=== PATIENT | female | born 2000 | race Caucasian/White ===

== ENCOUNTER 2021-12-24 21:41 | Emergency (ER) | payer SELFPAY ==
[2021-12-24 21:50] VITALS: BP 131/78; PULSE 74; RESP 19; TEMP 97.9; BMI 29.2
[2021-12-24 22:48] LABS: BASO % 0.6 % (0-2.0); EOS % 0.8 % (0-4.5); HEMATOCRIT 38.1 % (32.4-45.2); HEMOGLOBIN 13.2 GM/dL (10.7-15.3); LYMPH % 32.2 % (8-40); MCH 28.4 pg (25.7-33.7); MCHC 34.8 g/dl (32.0-36.0); MEAN CELL VOLUME 81.5 fl (80-96); MONO % 9.6 % (3.8-10.2); NEUT % 56.8 % (42.8-82.8); PLATELET COUNT 279 10^3/uL (134-434); RBC 4.67 M/mm3 (3.60-5.2); RDW 14.7 % (11.6-15.6); WHITE BLOOD COUNT 7.6 K/mm3 (4.0-10.0)
[2021-12-24 22:52] LABS: EPI CELLS >36 /uL (0-25.1); HYALINE CASTS 1 /uL (0-3.1); PH,URINE 6.5 (5.0-8.0); URINE APPEARANCE CLEAR; URINE BACTERIA >9,000 /uL (0-1359); URINE BILIRUBIN NEGATIVE (NEGATIVE); URINE COLOR ORANGE; URINE GLUCOSE (UA) NEGATIVE (NEGATIVE); URINE KETONE NEGATIVE (NEGATIVE); URINE LEUK ESTERASE TRACE (NEGATIVE); URINE NITRITE POSITIVE (NEGATIVE); URINE PROTEIN TRACE (NEGATIVE); URINE RBC 10 /uL (0-23.9); URINE WBC 74 /uL (0-25.8)
[2021-12-24 22:53] LABS: HCG,QUALITATIVE URINE Negative
[2021-12-24 23:11] LABS: CALCIUM 9.1 mg/dL (8.5-10.1)
[2021-12-24 23:13] LABS: BLOOD UREA NITROGEN 13.9 mg/dL (7-18)
[2021-12-24 23:15] LABS: CREATININE 0.9 mg/dL (0.55-1.3)
[2021-12-24 23:16] LABS: BILIRUBIN,TOTAL 0.4 mg/dL (0.2-1); TOT PROT 7.4 g/dl (6.4-8.2)
[2021-12-24] MEDS ORDERED: KETOROLAC TROMETHAMINE 15 MG/ML VIAL IVPUSH ONE (23:48)
[2021-12-25] MEDS ORDERED: KETOROLAC TROMETHAMINE 15 MG/ML VIAL ONE (00:21)
== END 2021-12-25 02:04 | disposition home or self-care (01) ==
LOC: JER 21:41 → EDSEX 21:41 → JER 12-25 02:04
PROC: 3E033GC Introduction of Other Therapeutic Substance into Peripheral Vein, Percutaneous Approach (ICD-10-PCS; principal; 2021-12-24)
DX: N39.0 Urinary tract infection, site not specified (principal); N93.9 Abnormal uterine and vaginal bleeding, unspecified; R10.32 Left lower quadrant pain
CPT/HCPCS: 36415; 76830-TC; 80053; 81003; 84703; 85025; 86850; 86900; 86901; 87491; 87591; 87661; 99284-25

== ENCOUNTER 2023-02-15 14:13 | Emergency (ER) | payer SELFPAY ==
[2023-02-15 14:30] VITALS: BP 102/60; PULSE 84; RESP 18; TEMP 98; BMI 29.9
[2023-02-15] MEDS ORDERED: ACETAMINOPHEN 500 MG TABLET (FP) PO ONE (15:01)
[2023-02-15] MEDS ORDERED: ACETAMINOPHEN 325 MG TABLET (FP) ONE (15:23)
[2023-02-15 15:35] LABS: BASO % 0.5 % (0-2.0); EOS % 0.9 % (0-4.5); HCG,QUALITATIVE URINE Positive; HEMATOCRIT 37.2 % (32.4-45.2); HEMOGLOBIN 12.6 GM/dL (10.7-15.3); LYMPH % 26.4 % (8-40); MCH 25.8 pg (25.7-33.7); MCHC 33.8 g/dl (32.0-36.0); MEAN CELL VOLUME 76.3 fl (80-96); MEAN PLT VOLUME 8.5 fl (7.5-11.1); MONO % 8.1 % (3.8-10.2); NEUT % 64.1 % (42.8-82.8); PLATELET COUNT 328 10^3/uL (134-434); RBC 4.87 M/mm3 (3.60-5.2); RDW 16.6 % (11.6-15.6); URINE APPEARANCE CLEAR; URINE BILIRUBIN NEGATIVE (NEGATIVE); URINE COLOR YELLOW; URINE GLUCOSE (UA) NEGATIVE (NEGATIVE); URINE KETONE NEGATIVE (NEGATIVE); URINE LEUK ESTERASE NEGATIVE (NEGATIVE); URINE NITRITE NEGATIVE (NEGATIVE); URINE PROTEIN NEGATIVE (NEGATIVE); URINE UROBILINOGEN 0.2 mg/dL (0.2-1.0); WHITE BLOOD COUNT 10.2 K/mm3 (4.0-10.0)
[2023-02-15 16:01] LABS: POTASSIUM 4.7 mmol/L (3.5-5.1)
[2023-02-15 16:03] LABS: CALCIUM 8.8 mg/dL (8.5-10.1)
[2023-02-15 16:04] LABS: ALBUMIN 3.8 g/dl (3.4-5.0)
[2023-02-15 16:07] LABS: CREATININE 0.7 mg/dL (0.55-1.3)
[2023-02-15 16:09] LABS: BILIRUBIN,TOTAL 0.3 mg/dL (0.2-1); TOT PROT 6.9 g/dl (6.4-8.2)
== END 2023-02-15 17:21 | disposition left against medical advice (07) ==
LOC: JER 14:13
DX: O26.891 Other specified pregnancy related conditions, first trimester (principal); R10.32 Left lower quadrant pain; O21.9 Vomiting of pregnancy, unspecified; Z3A.10 10 weeks gestation of pregnancy
CPT/HCPCS: 36415; 80053; 81003; 84702; 84703; 85025; 87086; 99283-25

== ENCOUNTER 2023-10-12 21:15 | Inpatient (IN) | payer OTHER ==
[2023-10-12] MEDS: ELECTROLYTE-148 SOLN 1,000 ML IV SCH (22:15)
[2023-10-12] MEDS ORDERED: BUTORPHANOL TARTRATE 2 MG/ML VIAL ONE (22:59)
[2023-10-12] MEDS ORDERED: PROMETHAZINE HCL 25 MG/1 ML VIAL ONE (23:00)
[2023-10-12 23:02] LABS: BASO % 0.2 % (0-2.0); EOS % 0.6 % (0-4.5); HEMATOCRIT 31.3 % (32.4-45.2); HEMOGLOBIN 9.7 GM/dL (10.7-15.3); LYMPH % 13.1 % (8-40); MEAN CELL VOLUME 62.9 fl (80-96); MEAN PLT VOLUME 8.9 fl (7.5-11.1); NEUT % 78.1 % (42.8-82.8); PLATELET COUNT 250 10^3/uL (134-434); RBC 4.98 M/mm3 (3.60-5.2); RDW 19.7 % (11.6-15.6); WHITE BLOOD COUNT 17.3 K/mm3 (4.0-10.0)
[2023-10-12 23:03] LABS: MCH 19.5 pg (25.7-33.7)
[2023-10-12] MEDS: BUTORPHANOL TARTRATE 2 MG/ML VIAL IVPB ONE (23:05)
[2023-10-12] MEDS: PROMETHAZINE HCL 25 MG/1 ML VIAL IVPB ONE (23:05)
[2023-10-12 23:08] LABS: INR 0.95 (0.83-1.09); PROTHROMBIN TIME (PATIENT) 10.9 SEC (9.7-13.0)
[2023-10-12 23:11] LABS: ACTIVATED PTT 24.7 SECONDS (25.2-36.5)
[2023-10-12 23:20] LABS: CHLORIDE 107 mmol/L (98-107); SODIUM 137 mmol/L (136-145)
[2023-10-12 23:21] LABS: CALCIUM 8.8 mg/dL (8.5-10.1)
[2023-10-12 23:22] LABS: ANION GAP 9 mmol/L (4-13); BLOOD UREA NITROGEN 9.3 mg/dL (7-18); CO2 22 mmol/L (21-32); GLUCOSE,RANDOM 76 mg/dL (74-106)
[2023-10-12 23:25] LABS: CREATININE 0.5 mg/dL (0.55-1.3)
[2023-10-12 23:31] LABS: ANISOCYTOSIS 2+; MACROCYTOSIS 0; OVALOCYTE 1+; TARGET CELLS 1+; TEAR DROP CELLS 1+
[2023-10-12 23:42] VITALS: BMI 43.7
[2023-10-13] MEDS ORDERED: OXYTOCIN 20 UNITS in 0.9% NS 20 UNIT/1,000 ML INFUS.BAG IV ONE ×2 (03:08→13:06)
[2023-10-13] MEDS ORDERED: FENTANYL/BUPIVACAINE/NS/PF - PCEA - 50 ML DISP.SYRIN EP ONE ×2 (04:05→08:31)
[2023-10-13] MEDS ORDERED: NALOXONE HCL 0.4 MG/ML VIAL IVPUSH PRN (04:14)
[2023-10-13] MEDS ORDERED: FENTANYL CITRATE/PF 50 MCG/ML VIAL ONE (04:16)
[2023-10-13] MEDS ORDERED: BUPIVACAINE HCL/PF 0.25% (2.5MG/ML) 10 ML VIAL ONE (04:16)
[2023-10-13] MEDS ORDERED: OXYTOCIN 30 UNITS in 0.9% NS 30 UNIT/500 ML INFUS.BAG IVPB ONE (07:03)
[2023-10-13] MEDS: OXYTOCIN 30 UNITS in 0.9% NS 30 UNIT/500 ML INFUS.BAG IVPB SCH (07:08)
[2023-10-13] MEDS: FENTANYL/BUPIVACAINE/NS/PF - PCEA - 50 ML DISP.SYRIN EP SCH (08:25)
[2023-10-13] MEDS: OXYTOCIN 20 UNITS in 0.9% NS 20 UNIT/1,000 ML INFUS.BAG IV SCH (10:54)
[2023-10-13] MEDS ORDERED: WITCH HAZEL 50% (TUCKS) 40 PAD/JAR PAD TP PRN (11:07)
[2023-10-13] MEDS ORDERED: ACETAMINOPHEN 325 MG TABLET (FP) PO PRN (11:07)
[2023-10-13] MEDS ORDERED: BISACODYL 10 MG SUPP.RECT RC PRN (11:07)
[2023-10-13] MEDS ORDERED: METHYLERGONOVINE MALEATE 0.2 MG/1 ML AMP IM PRN (11:07)
[2023-10-13] MEDS ORDERED: BENZOCAINE 28 GM HEMORRHOIDAL OINTMENT TP PRN (11:07)
[2023-10-13] MEDS: ACETAMINOPHEN 500 MG TABLET (FP) PO ONE (11:50)
[2023-10-13] MEDS ORDERED: ACETAMINOPHEN 500 MG TABLET (FP) ONE (11:51)
[2023-10-13] MEDS: AMPICILLIN NA/SULBACTAM NA 1.5 GM in SODIUM CHLORIDE 100 ML IVPB ONE (13:30)
[2023-10-13] MEDS: BENZOCAINE 20% 57 GM BOTTLE TP PRN (18:07)
[2023-10-14] MEDS: IBUPROFEN 600 MG TABLET (FP) PO PRN (07:10)
[2023-10-14 07:46] LABS: HEMATOCRIT 24.9 % (32.4-45.2); HEMOGLOBIN 7.5 GM/dL (10.7-15.3); MCHC 30.3 g/dl (32.0-36.0); MEAN CELL VOLUME 63.7 fl (80-96); MEAN PLT VOLUME 8.6 fl (7.5-11.1); PLATELET COUNT 210 10^3/uL (134-434); WHITE BLOOD COUNT 20.3 K/mm3 (4.0-10.0)
[2023-10-14 07:49] LABS: MCH 19.3 pg (25.7-33.7)
[2023-10-14 08:56] LABS: ANISOCYTOSIS 2+; MACROCYTOSIS 0; OVALOCYTE 1+
[2023-10-14] MEDS: FERROUS SO4 325 MG TABLET (FP) PO SCH (10:09)
[2023-10-14] MEDS: PRENATAL VITAMINS W/ FOLIC ACID TABLET (FP) PO SCH (10:09)
[2023-10-14] MEDS ORDERED: SENNOSIDES/DOCUSATE COMBO (SENNA PLUS) TABLET (UD) PO PRN (22:00)
[2023-10-14 22:15] VITALS: RESP 18
[2023-10-15 08:46] VITALS: BP 114/74; PULSE 85; TEMP 97.9
== END 2023-10-15 12:00 | disposition home or self-care (01) | DRG 560 ==
LOC: JDEL 21:15 → JLDR 21:50 → J3W 10-13 13:40
PROVIDERS: ADMIT Obstetrics & Gynecology; ATTEND Obstetrics & Gynecology
PROC: 10E0XZZ Delivery of Products of Conception, External Approach (ICD-10-PCS; principal; 2023-10-13)
PROC: 0HQ9XZZ Repair Perineum Skin, External Approach (ICD-10-PCS; 2023-10-13)
DX: O48.0 Post-term pregnancy (principal); O66.0 Obstructed labor due to shoulder dystocia; O70.0 First degree perineal laceration during delivery; O86.4 Pyrexia of unknown origin following delivery; Z3A.41 41 weeks gestation of pregnancy; Z37.0 Single live birth
CPT/HCPCS: 36415; 59025; 59409; 80048; 85025; 85610; 85730; 86780; 86850; 86900; 86901